=== PATIENT | female | born 1945 | race American Indian/Alaskan Native ===

== ENCOUNTER 2017-05-23 06:35 | Emergency (ER) | payer MEDICARE ==
--- NOTE | 2017-05-23 07:07 | Emergency Department Report ---
HPI - General Chief Complaint: High BP Time Seen by Provider: 05/23/17 06:59 - HPI HPI: This is a 72-year-old Afro-N[place]alese female presents to the emergency department with complaint of elevated blood pressure has been going on for the past 3 months. The patient was started on losartan by her PCP, Dr. Camacho, 6 months ago and more recently the dosage was increased. The patient says that she is compliant with the medication but lately her blood pressure is still been elevated. She admits to a "twinge" of chest discomfort earlier today but that has since resolved and she currently denies any chest pain, acute shortness of breath, nausea, vomiting or diaphoresis. The patient does have a history of COPD and wears 2 L oxygen at home at baseline. She denies any swelling. She is not taken anything else for symptoms prior to presentation. She says that she drinks one cup of caffeinated coffee per day and that she cooks for herself without any excessive salt use. No recent travel or sick contacts at home. She is a former smoker. ED Past Medical Hx - Past Medical History Previous Medical History?: Yes Hx Hypertension: Yes Hx Diabetes: Yes (pre diabetic) Hx GERD: Yes Hx COPD: Yes (USES 02 AT HOME) - Surgical History Past Surgical History?: Yes Hx Breast Surgery: Yes (BREAST BX 2013) Additional Surgical History: eye surgery, foot surgery - Social History Smoking Status: Former Smoker Substance Use Type: None - Medications Home Medications: Home Medications Medication Instructions Recorded Confirmed Last Taken Type Tiotropium [Spiriva] 1 puff INHALATION DAILY 12/28/13 05/23/17 01/24/16 History Losartan [Cozaar] 50 mg PO QDAY 01/25/16 05/23/17 01/24/16 History Albuterol Sulfate [Ventolin HFA] 2 puff IH Q4H PRN 05/23/17 05/23/17 Unknown History amLODIPine [Norvasc] 5 mg PO DAILY #20 tab 05/23/17 Unknown Rx ED Review of Systems ROS: Stated complaint: DIFFICULTY BREATHING Other details as noted in HPI Comment: All other systems reviewed and negative Constitutional: denies: chills, fever Eyes: denies: eye pain, eye discharge, vision change ENT: denies: ear pain, throat pain Respiratory: shortness of breath (chronic/baseline). denies: cough Cardiovascular: chest pain (resolved). denies: edema Gastrointestinal: denies: abdominal pain, nausea, diarrhea Genitourinary: denies: urgency, dysuria, discharge Musculoskeletal: denies: back pain, joint swelling, arthralgia Skin: denies: rash, lesions Neurological: denies: headache, weakness, paresthesias Physical Exam - Physical Exam Vital Signs: Vital Signs 05/23/17 05/23/17 06:48 06:56 Temperature 98.5 F Pulse Rate 85 Respiratory 17 Rate Blood Pressure 198/88 O2 Sat by Pulse 100 100 Oximetry Physical Exam: GENERAL: The patient is well-developed well-nourished. HEENT: Normocephalic. Atraumatic. Extraocular motions are intact. Patient has moist mucous membranes. Pupils equal reactive to light bilaterally. No nystagmus. NECK: Supple. Trachea is midline. CHEST/LUNGS: Clear to auscultation. There is no respiratory distress noted. HEART/CARDIOVASCULAR: Regular. There is no tachycardia. There is no gallop rub or murmur. ABDOMEN: Abdomen is soft, nontender. Patient has normal bowel sounds. There is no abdominal distention. SKIN: Skin is warm and dry. NEURO: The patient is awake, alert, and oriented. The patient is cooperative. The patient has no focal neurologic deficits. The patient has normal speech and gait. Cranial nerves II through XII grossly intact. MUSCULOSKELETAL: There is no tenderness or deformity. There is no limitation range of motion. There is no evidence of acute injury. ED Course Vital Signs 05/23/17 05/23/17 06:48 06:56 Temperature 98.5 F Pulse Rate 85 Respiratory 17 Rate Blood Pressure 198/88 O2 Sat by Pulse 100 100 Oximetry ED Medical Decision Making - Lab Data Result diagrams: 05/23/17 07:01 05/23/17 07:01 - EKG Data -: EKG Interpreted by Me EKG shows normal: sinus rhythm (with sinus arrhythmia), axis, intervals, QRS complexes, ST-T waves Rate: normal - EKG Data When compared to previous EKG there are: previous EKG unavailable Interpretation: normal EKG - Medical Decision Making 72-year-old female presents to the emergency department with complaint of uncontrolled blood pressure despite medication compliance. She mentioned some type of a twinge of chest discomfort that has since resolved. His reason EKG was done that did not show any signs of ST elevation PA, ischemia or significant dysrhythmia. Her labs are unremarkable including no leukocytosis, electrolytes abnormalities, renal insufficiency or glucose abnormalities in the patient had a negative troponin. She was given a dose of hydralazine which brought her blood pressure down to a much more reasonable level. There are no focal, motor or sensory deficits in her cranial nerves are intact. Patient was seen ambulatory in the emergency department and appears stable. She will be started on Norvasc 5 mg to be added to her low certain and she has been encouraged to keep a blood pressure log and follow up with her PCP on Friday without fail. She will return to the ER with any worsening of her symptoms, development of chest pain or neurological deficits or any acute distress. - Differential Diagnosis hypertensive urgency, hypertensive crisis, PA Critical Care Time: No Critical care attestation.: If time is entered above; I have spent that time in minutes in the direct care of this critically ill patient, excluding procedure time. ED Disposition Clinical Impression: Hypertensive urgency Disposition: - TO HOME OR SELFCARE Is pt being admited?: No Condition: Stable Instructions: Hypertension (ED) Additional Instructions: Please follow-up with your primary care physician on Friday without fail. I have started you on a blood pressure medication called Norvasc to be taken once daily and added to your other blood pressure medication. Keep a blood pressure log. Return to the emergency department with any worsening of your symptoms, chest pain, headache, any neurological deficits, or any acute distress. Prescriptions: amLODIPine [Norvasc] 5 mg PO DAILY #20 tab Referrals: PRIMARY CAREMD [Primary Care Provider] - [facility] Time of Disposition: 10:22
[2017-05-23] MEDS ORDERED: APRESOLINE IV ONE (07:08)
[2017-05-23 07:31] LABS: Basophils % (Auto) 0.6 % (0.0-1.8); Eosinophils % (Auto) 2.7 % (0.0-4.3); Hematocrit 34.2 % (30.3-42.9); Hemoglobin 10.9 gm/dl (10.1-14.3); Mean Corpuscular HGB Conc 32 % (30-34); Mean Corpuscular Hemoglobin 27 pg (28-32); Mean Corpuscular Volume 83 fl (79-97); Platelet Count 301 K/mm3 (140-440); Red Blood Count 4.11 M/mm3 (3.65-5.03); Red Cell Distribution Width 16.1 % (13.2-15.2); White Blood Count 8.4 K/mm3 (4.5-11.0)
[2017-05-23 07:34] LABS: Anion Gap 13 mmol/L; Blood Urea Nitrogen 15 mg/dL (7-17); Calcium 9.4 mg/dL (8.4-10.2); Carbon Dioxide 33 mmol/L (22-30); Chloride 103.5 mmol/L (98-107); Glucose 123 mg/dL (65-100); Potassium 4.5 mmol/L (3.6-5.0); Sodium 145 mmol/L (137-145)
--- NOTE | 2017-05-23 08:41 | XRay Report ---
Single view chest: History: Hypertension. Findings: Cardiomegaly. Trachea is midline. No consolidation, pneumothorax or pleural effusion. Impression: Cardiomegaly. No acute consolidation.
[2017-05-23 10:09] VITALS: BP 154/67
== END 2017-05-23 10:41 | disposition home or self-care (01) ==
LOC: ED 06:35
DX: I10 Essential (primary) hypertension (principal); E11.9 Type 2 diabetes mellitus without complications; K21.9 Gastro-esophageal reflux disease without esophagitis; J44.9 Chronic obstructive pulmonary disease, unspecified; Z87.891 Personal history of nicotine dependence
CPT/HCPCS: 36415; 71010; 80048; 84484; 85025; 93005; 93010; 96374; 99285; J0360